=== PATIENT | female | born 1995 | race African-American/Black ===

== ENCOUNTER 2020-03-30 16:56 | Emergency (ER) | payer SELFPAY ==
[2020-03-30] MEDS ORDERED: Dexamethasone 10 MG/ML VIAL ONE (17:55)
[2020-03-30] MEDS ORDERED: Bicillin LA 1.2 MILLION UNITS/2 ML SYRINGE ONE (17:55)
== END 2020-03-30 18:23 | disposition home or self-care (01) ==
LOC: ERS 16:56
DX: J02.9 Acute pharyngitis, unspecified (principal); E78.5 Hyperlipidemia, unspecified; E78.00 Pure hypercholesterolemia, unspecified; F17.200 Nicotine dependence, unspecified, uncomplicated
CPT/HCPCS: 96372; 99282; J0561; J1100